=== PATIENT | male | born 1990 | race Caucasian/White ===

== ENCOUNTER 2016-02-27 21:38 | Emergency (ER) | payer OTHER ==
[~2016-02-27] VITALS: Ht 185.4 cm; Wt 72.6 kg
[2016-02-27 21:35] VITALS: BP 121/67
--- NOTE | 2016-02-27 21:48 | Emergency Room Report ---
History of Present Illness General Chief Complaint: Substance Abuse Source: Patient, EMS Present Illness HPI 25 YOM BIBEMS after suspected heroin OD. EMS states friends called EMS after patient was "not breathing," found with needles in arm, pinpoint pupils. Was given 2mg IV narcan with response. Patient "not sure what happened," states he likely relapsed after sobriety for 4 months. Denies other drugs, ETOH. Denies trauma. Denies pain. Denies chest pain, SOB. Allergies: Coded Allergies: No Known Allergies (Unverified , 02/27/16) Patient History Past Medical History: none Past Surgical History: none Pertinent Family History: none Social History: Reports: drug use, smoking, Denies: alcohol use Immunizations: UTD Reviewed Nursing Documentation: PMH: Agreed, PSxH: Agreed Nursing Documentation-PMH Past Medical History: No Stated History Review of Systems All Other Systems: negative except mentioned in HPI Physical Exam Vital Signs Date Time Temp Pulse Resp B/P Pulse Ox O2 Delivery O2 Flow Rate FiO2 02/27/16 21:22 98.2 135 14 133/81 98 Room Air Sp02 EP Interpretation: reviewed, normal General Appearance: normal inspection, well appearing, no apparent distress, alert, GCS 15, non-toxic Head: normocephalic, atraumatic Eyes: bilateral eye EOMI, bilateral eye PERRL ENT: normal ENT inspection, hearing grossly normal, normal voice Neck: normal inspection, full range of motion, supple, no bony tend Respiratory: normal inspection, lungs clear, normal breath sounds, no respiratory distress, no retraction, no wheezing Cardiovascular #1: regular rate, rhythm, no edema Gastrointestinal: normal inspection, normal bowel sounds, non tender, soft, no guarding, no hernia Genitourinary: no CVA tenderness Musculoskeletal: normal inspection, back normal, normal range of motion, Kinga' s Sign negative, other Neurologic: normal inspection, alert, oriented x3, responsive, book editor III-XII nml as tested, motor strength/tone normal, speech normal Psychiatric: normal inspection, judgement/insight normal, mood/affect normal Procedures Critical Care Time Critical Care Time CC time 45 minutes Care for a 25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 S/p narcan given by EMS with improvement after found in respiratory distress DDx includes infection, polysubstance abuse Patient is now alert and oriented, atraumatic Comprehensive physical exam completed, atraumatic. Labs include toxicology, CBC, chem panel, utox, EKG 12 lead and constant cardiac rhythm strip monitoring, IV established. Airway adequately maintained by patient upon arrival. EKG reveals NSR, sinus tachycardia. Physician spent 40 minutes of direct critical care time monitoring patient's respiratory, cardiac and neurological status, reassessment, review of imaging, labs and discussion with attending hospitalist. CC could also include additional narcan, narcan gtt, ICU admission Does not include procedures Medical Decision Making Diagnostic Impression: Primary Impression: Accidental heroin overdose Qualified Codes: T40.1X1A - Poisoning by heroin, accidental (unintentional), initial encounter Additional Impressions: SHIRLEY (acute kidney injury) Rhabdomyolysis Qualified Codes: M62.82 - Rhabdomyolysis Leukocytosis Qualified Codes: D72.829 - Elevated white blood cell count, unspecified ER Course 25 YOM with accidental heroin OD s/p narcan. Patient now alert and oriented. VSS. Afebrile PLAN Cardiac, O2 monitor , tox labs, IVF hydration, close monitoring and reassessment EKG Diagnostic Results Rate: tachycardiac Rhythm: NSR ST Segments: no acute changes ASA given to the pt in ED: No Rhythm Strip Diag. Results EP Interpretation: yes Rate: 105 Rhythm: NSR, no PVC's, no ectopy Chest X-Ray Diagnostic Results EP Interpretation: Yes Findings: no consolidation, no effusion, no pneumothorax, no acute cardiopulmonary disease Number of Views: 1 Reevaluation Time: 23:41 Last Vital Signs Date Time Temp Pulse Resp B/P Pulse Ox O2 Delivery O2 Flow Rate FiO2 02/27/16 21:35 97.9 137 15 121/67 98 Room Air Status: improved Reevaluation Impression Labs: Mild SHIRLEY. Mild elevation in CK. Leuks 14k. H&H stable. ECG shows sinus tach CXR unremarkable for PTX, CHF, other acute abnormality Utox + for opiates, benzos A: Accidental heroin overdose. - Observed for 3 hours in ED - did not require additional narcan. Maintained RR , O2 sat. - Mild SHIRLEY with CK. Was given IVF NS hydration. Patient tolerating PO - Elevated leuks likely acute stress reaction from OD, narcan - Girlfriend came to ED, states patient accepted back to [facility] [place] [facility] - just needs med clearance, which was provided - DC to rehab Disposition: HOME, SELF-CARE FATMATA SORIANO M.D. Feb 27, 2016 21:48
[2016-02-27 22:12] LABS: MEAN CORPUSCULAR HEMOGLOBIN 28.2 PG (27.0-31.0); MEAN CORPUSCULAR HGB CONC 33.2 G/DL (32.0-36.0); MEAN CORPUSCULAR VOLUME 85 FL (80-99); MEAN PLATELET VOLUME 6.3 FL (6.5-10.1); PLATELET COUNT 238 K/UL (150-450); RED CELL DISTRIBUTION WIDTH 12.3 % (11.6-14.8); WHITE BLOOD COUNT 14.3 K/UL (4.8-10.8)
[2016-02-27 22:20] LABS: ALANINE AMINOTRANSFERASE 18 U/L (3-41); ALBUMIN/GLOBULIN RATIO 1.6 (1.0-2.7); ANION GAP 23 (5-15); ASPARTATE AMINO TRANSFERASE 33 U/L (5-40); CARBON DIOXIDE 23 mEQ/L (20-30); CHLORIDE 96 mEQ/L (98-107); CREATININE 1.4 mg/dL (0.7-1.2); GLOMERULAR FILTRATION RATE > 60 mL/min (>60); HEMOLYSIS 12; POTASSIUM 3.5 mEQ/L (3.4-4.9); SODIUM 142 mEQ/L (135-145); TOTAL PROTEIN 7.7 g/dL (6.6-8.7)
[2016-02-27 22:52] LABS: BAND NEUTROPHILS % (MANUAL) 0 % (0-8); LYMPHOCYTES % (MANUAL) 5 % (20-45); NEUTROPHILS % (MANUAL) 90 % (45-75); TOTAL CELLS COUNTED 100
[2016-02-27 22:53] LABS: BASOPHILS % (MANUAL) 1 % (0-2)
[2016-02-27 22:54] VITALS: BP 124/65
[2016-02-27 22:54] LABS: EOSINOPHILS % (MANUAL) 0 % (0-3); PLATELET ESTIMATE ADEQUATE; PLATELET MORPHOLOGY NORMAL
[2016-02-27 23:40] VITALS: BP 131/83
[2016-02-27 23:45] VITALS: BP 131/83
--- NOTE | 2016-02-28 10:05 | Diagnostic Imaging Report ---
Indication: Chest Pain Comparison: None A single view chest radiograph was obtained. Findings: Cardiomediastinal appearance is within normal limits for age. Pulmonary vascularity is appropriate. The diaphragmatic contour is smooth and costophrenic angles are sharp. No pleural effusions are identified. The bones are unremarkable. Impression: No acute findings
--- NOTE | 2016-02-28 18:53 | Cardiology Report ---
APPROVED REPORT EKG Measurement Heart [id number] Sinus tachycardia Left ventricular hypertrophy with repolarization abnormality Abnormal ECG
== END 2016-02-27 23:45 | disposition home or self-care (01) ==
LOC: EDBD 21:38 → EMR 22:15
DX: T40.1X1A Poisoning by heroin, accidental (unintentional), initial encounter (principal); Y92.89 Other specified places as the place of occurrence of the external cause; N17.9 Acute kidney failure, unspecified; M62.82 Rhabdomyolysis; D72.829 Elevated white blood cell count, unspecified; R00.0 Tachycardia, unspecified; F17.200 Nicotine dependence, unspecified, uncomplicated
CPT/HCPCS: 36415; 71010; 80053; 80300; 82550; 85007; 85025; 93005; 96360